=== PATIENT | female | born 1950 | race Caucasian/White ===

== ENCOUNTER → 2016-06-16 | Outpatient (CLI) | payer OTHER | LOC: RAD 12:18 | DX: R05 Cough (principal) | CPT/HCPCS: 71020 ==

== ENCOUNTER 2020-06-29 11:20 | Emergency (ER) | payer OTHER, SELFPAY ==
[~2020-06-29 11:20] MED LIST: CLARITIN 10MG T10 MG PO; MIRALAX 119 GR119 GM PO; NAPROXEN 250 M250 MG PO; NEXIUM20 MG PO; NORCO 7.5-3251 EACH PO
[2020-06-29 13:26] LABS: HEMOGLOBIN 12.8 gm/dl (12.3-15.3); RED BLOOD COUNT 4.96 M/UL (4.00-5.10); WHITE BLOOD COUNT 10.4 K/UL (4.5-11.0)
[2020-06-29 13:39] LABS: BUN/CREATININE RATIO 17 (0-10)
[2020-06-29] MEDS ORDERED: AUGMENTIN 875-1 EACH PO (15:03)
[2020-08-26] MEDS ORDERED: HYDROCODONE-AC1 EAC1 PO (11:33)
[2020-08-26] MEDS ORDERED: PROTONIX (11:35)
[2020-08-26] MEDS ORDERED: IBUPROFEN200 M1 PO (11:35)
[2020-08-29] MEDS ORDERED: TYLENOL325 M1 PO (07:37)
[2020-08-29] MEDS ORDERED: PERCOCET 7.5-31 EACH PO (08:04)
== END 2020-06-29 15:15 | disposition home or self-care (01) ==
LOC: ER1 11:20
PROVIDERS: Physician Assistant
DX: K52.9 Noninfective gastroenteritis and colitis, unspecified (principal); K57.32 Diverticulitis of large intestine without perforation or abscess without bleeding; Z90.711 Acquired absence of uterus with remaining cervical stump
CPT/HCPCS: 80053; 82272; 85025; 99284; Q9967

== ENCOUNTER 2020-08-16 17:53 | Emergency (ER) | payer OTHER, SELFPAY ==
[~2020-08-16 17:53] MED LIST changes: +AUGMENTIN 875-1 EACH PO
[2020-08-16] MEDS ORDERED: HYDROCODON-ACE1 EAC4 PO (20:36)
[2020-08-26] MEDS ORDERED: HYDROCODONE-AC1 EAC1 PO (11:33)
[2020-08-26] MEDS ORDERED: IBUPROFEN200 M1 PO (11:35)
[2020-08-26] MEDS ORDERED: PROTONIX (11:35)
[2020-08-29] MEDS ORDERED: TYLENOL325 M1 PO (07:37)
[2020-08-29] MEDS ORDERED: PERCOCET 7.5-31 EACH PO (08:04)
== END 2020-08-16 20:59 | disposition home or self-care (01) ==
LOC: ER1 17:53
DX: S82.842A Displaced bimalleolar fracture of left lower leg, initial encounter for closed fracture (principal); W17.89XA Other fall from one level to another, initial encounter; Y92.89 Other specified places as the place of occurrence of the external cause
CPT/HCPCS: 29515; 73590; 73610; 96372; 99283; J2270

== ENCOUNTER → 2020-08-29 | Day surgery (SDC) | payer OTHER, SELFPAY ==
[~2020-08-29] VITALS: Ht 165.1 cm; Wt 66.7 kg
[~2020-08-29] MED LIST changes: +HYDROCODON-ACE1 EAC4 PO; +HYDROCODONE-AC1 EAC1 PO; +IBUPROFEN200 M1 PO; +PERCOCET 7.5-31 EACH PO; +PROTONIX; +TYLENOL325 M1 PO
== END | disposition home or self-care (01) ==
LOC: OR 06:42
DX: S82.842A Displaced bimalleolar fracture of left lower leg, initial encounter for closed fracture (principal); K21.9 Gastro-esophageal reflux disease without esophagitis; M19.90 Unspecified osteoarthritis, unspecified site; Z88.5 Allergy status to narcotic agent; Z79.1 Long term (current) use of non-steroidal anti-inflammatories (NSAID); Z79.891 Long term (current) use of opiate analgesic; X58.XXXA Exposure to other specified factors, initial encounter
CPT/HCPCS: 73610; 76000; C1713; J0171; J0690; J1100; J2001; J2250; J2370; J2405; J2704; J2795; J3010; J7120